=== PATIENT | female | born 1935 | race Caucasian/White ===

== ENCOUNTER 2020-07-03 13:49 | Inpatient (IN) | payer OTHER, SELFPAY ==
[~2020-07-03] VITALS: Ht 177.8 cm; Wt 50.8 kg
[~2020-07-03 13:49] MED LIST: ATENOLOL; BABY ASPIRIN; IRON
--- NOTE | 2020-07-03 14:02 | NUR ---
BIB EMT FROM HOME FOR WEAKNESS, CAREGIVER CALLED 911 TO REPORT HER CONDITION, UPON [facility] REQUIRED TRANSFER TO ER. PT HAS NO COMPLAINTS. RESP UNLABORED, SKIN DRY. POOR HYGIENE, UNABLE TO STATE LAST MEAL. UNKNOWN LAST BATH. SHE HAS MULTIPLE SCABS, BANDAIDS. SPINAL DEFORMITY TO UPPER SPINE, NECK CONTRACTURE
[2020-07-03 14:09] VITALS: BP_SYST 131
[2020-07-03] MEDS ORDERED: NS 250 ML IV ONE (14:15)
--- NOTE | 2020-07-03 14:15 | NUR ---
SPOKE WITH MEDICS REGARDING PTS LIVING CONDITIONS, MEDICS STATE THAT HOUSE IS UNINHABITABLE. HOUSE IS DIRTY. CALL PLACED TO KNITTING DEMONSTRATOR DIOMEDES TO INFORM HER OF POSSIBLE ADMISSION AND THAT KNITTING DEMONSTRATOR NEED TO GET INVOLVED.
[2020-07-03] MEDS ORDERED: DILTIAZEM HCL 25 MG/5 ML VIAL IVP ONE (15:00)
[2020-07-03 15:07] LABS: BASOPHILS % (AUTO) 0.2 % (0.0-2.0); HEMATOCRIT 46.8 % (36-48); HEMOGLOBIN 15.2 g/dL (12.0-16.0); LYMPHOCYTES # (AUTO) 0.6 K/uL (1.0-5.5); LYMPHOCYTES % (AUTO) 5.4 % (20.5-51.5); MEAN CORPUSCULAR HEMOGLOBIN 31 pg (27-31); MEAN CORPUSCULAR HGB CONC 33 % (32-36); MEAN CORPUSCULAR VOLUME 97 fL (79.0-98.0); MONOCYTES # (AUTO) 0.9 K/uL (0.0-1.0); MONOCYTES % (AUTO) 8.4 % (1.7-9.3); NEUTROPHILS # (AUTO) 9.5 K/uL (1.8-7.7); PLATELET COUNT (AUTO) 165 K/uL (130-430); RED BLOOD CELL COUNT(AUTO) 4.84 MIL/uL (4.2-6.2); RED CELL DISTRIBUTION WIDTH 14.9 % (9.0-15.0); WHITE BLOOD COUNT (AUTO) 11.1 K/uL (4.8-10.8)
[2020-07-03 15:26] LABS: ANION GAP 14 (5-15); CALCIUM 9.1 mg/dL (8.4-11.0); CHLORIDE 102 mmol/L (98-107); CREATININE 0.65 mg/dL (0.55-1.30); GLUCOSE 134 mg/dL (70-99); POTASSIUM 3.8 mmol/L (3.5-5.1); SODIUM SERUM 138 mmol/L (136-145); UREA NITROGEN, BLOOD 26 mg/dL (8-21)
[2020-07-03 15:32] LABS: ALANINE AMINOTRANSFERASE 34 U/L (12-78); ALBUMIN 3.8 g/dL (3.4-4.8); ASPARTATE AMINOTRANSFERASE 45 U/L (10-37); TOTAL BILIRUBIN 1.3 mg/dL (0.0-1.0)
--- NOTE | 2020-07-03 15:49 | NUR ---
BACK FROM CT. A-FIB ON MONITOR
[2020-07-03 15:50] LABS: INR 1.1 (0.8-1.2); PROTHROMBIN TIME 11.3 SECS (9.5-12.5)
--- NOTE | 2020-07-03 15:57 | NUR ---
SPOKE WITH CAREGIVER (NEIGHBOR) AVERY AND STATED THAT SHE ONLY TAKES HER TO THE [facility] STORE, PT DOES NOT ALLOW ANYONE IN HER HOME. TODAY CAREGIVER AVERY WENT INTO HOME AND STATES IT IS LIKE A HOARDERS HOME AND IS FILTHY.
--- NOTE | 2020-07-03 16:11 | NUR ---
STRAIGHT catheter with use of sterile technique. Immediate return of 325cc CLEAR urine noted. Urine sample collected and sent to lab. Pt tolerated procedure WELL Patient unable to toilet self.
[2020-07-03 16:43] LABS: CLARITY/URINE CLEAR (CLEAR); COLOR,URINE YELLOW (YELLOW); GLUCOSE,URINE NEGATIVE (NEGATIVE); KETONES,URINE NEGATIVE (NEGATIVE); PH,URINE 5.5 (5.0-8.0); PROTEIN URINE 2+ (NEGATIVE)
[2020-07-03 16:44] LABS: BILIRUBIN,URINE NEGATIVE (NEGATIVE); BLOOD, URINE 3+ (NEGATIVE); LEUKOCYTE ESTERASE ,URINE NEGATIVE (NEGATIVE); NITRITE, URINE NEGATIVE (NEGATIVE); UROBILINOGEN,URINE 0.2 (0.2-1.0)
[2020-07-03 16:47] LABS: BACTERIA,URINE MANY /HPF (None Seen); WBC,URINE 0-3 /HPF (0-3)
[2020-07-03 16:48] LABS: HYALINE CASTS, URINE 0-10 /LPF (None Seen); TRICHOMONAS,URINE None Seen /HPF (None Seen); YEAST,URINE None Seen /HPF (None Seen)
[2020-07-03 16:49] LABS: MUCUS,URINE 1+ /LPF (None Seen)
[2020-07-03] MEDS ORDERED: DILTIAZEM HCL 125 MG/25 ML VIAL IV ONE (17:37)
--- NOTE | 2020-07-03 17:54 | NUR ---
ADMIT ORDERS RECEIVED BY KATHY FOR TELE ADMIT UNDER MYNOR
[2020-07-03] MEDS ORDERED: cefTRIAXone 1 GM IVPB PREMIX 50 ML IV SCH (18:00)
[2020-07-03] MEDS ORDERED: cefTRIAXone 1 GM VIAL ONE (18:22)
--- NOTE | 2020-07-03 19:18 | NUR ---
CALM, ALERT, NO CHANGE IN MENTATION, UPDATE GIVEN TO CAREGIVER
--- NOTE | 2020-07-03 20:10 | NUR ---
ALERT, CALM, RESP UNLABORDED
[2020-07-03 21:45] VITALS: BP_SYST 105
--- NOTE | 2020-07-03 21:45 | NUR ---
pt.received via the er-dept.pt.received with cardizem-drip infusing.pt.presents poor hygiene.pt.presents loc;confuses;subject matter incoherent.pt.presents wounds,scabs.pt. incontinent.o2 therapy applied;o2 administered@the rate2l/min via nasal cannulae.pt.cleaned/repositioned.call light/telephone placed w/in reach of the pt.
--- NOTE | 2020-07-03 22:05 | NUR ---
TRANSPORTED TO FLOOR W/O INCIDENT. NO CHANGE IN MENTATION.
--- NOTE | 2020-07-03 22:22 | NUR ---
LATE ENTRY FOR 2137: ADMISSION: The patient, EDIE RAE, 85 y/o, F admitted by ORTIZ LOWE MD,with the diagnosis of A FIB , to room 103 B . Primary RN Poncho recived report from ER nurse . NOTICED THAT PT IS ON CARDIZEM DRIP AT 10 ML/HR . C.N NOTIFIED
[2020-07-03 22:27] VITALS: BP_SYST 105
[2020-07-03] MEDS: ENOXAPARIN SODIUM 60 MG/0.6 ML SYRINGE SUBCUT SCH (22:47)
[2020-07-03] MEDS ORDERED: NACL 0.9% 1,000 ML IV ONE (23:30)
[2020-07-03] MEDS ORDERED: cefTRIAXone 1 GM IVPB PREMIX 50 ML IV ONE (23:30)
[2020-07-03] MEDS ORDERED: NACL 0.9% 500 ML IV ONE (23:30)
[2020-07-04] MEDS ORDERED: cefTRIAXone 1 GM VIAL ONE (00:04)
--- NOTE | 2020-07-04 02:28 | NUR ---
Consultation Paged Reason for Consultation: Afib with RVR Was consult called: Y Person who was notified: Wood Heel Cementer 22 Consulting Physician: Dr. Cuadra (Dr. Jaramillo is stationary engineer refrigeration) Ordering Physician: Dr. Dodd
--- NOTE | 2020-07-04 06:30 | NUR ---
had been paged.i apprised that the pt.had been received w cardizem-drip infusing. ordered:do not titrate the cardizem-drip.i apprised that the lactic acids levels were elevated otdered sepsis protocol.b/b/cx had been attended to in the er-dept.rocephine 1gm initial dose ordered.i administered ns bolus x1.5litres,rocephin abx ivpb initial dose.pt.had received the administration;ns;250ml x1 in th er-dept.pt.presented wounds;scabs.i have photographed the wounds;sacbs.orders placed for the wcn to fu.pt.repositioned q-2hrs.snacks/beverages provided.pt.cleaned.;cardio consult for the am;07/04/20;re;a-fib status.cardio monitor in place. call light/telephone placed w/in access of the pt.
[2020-07-04 06:46] LABS: BASOPHILS % (AUTO) 0.2 % (0.0-2.0); HEMATOCRIT 37.2 % (36-48); HEMOGLOBIN 12.3 g/dL (12.0-16.0); LYMPHOCYTES # (AUTO) 0.7 K/uL (1.0-5.5); LYMPHOCYTES % (AUTO) 7.6 % (20.5-51.5); MEAN CORPUSCULAR HEMOGLOBIN 32 pg (27-31); MEAN CORPUSCULAR HGB CONC 33 % (32-36); MEAN CORPUSCULAR VOLUME 96 fL (79.0-98.0); MONOCYTES % (AUTO) 10.7 % (1.7-9.3); NEUTROPHILS # (AUTO) 7.4 K/uL (1.8-7.7); NEUTROPHILS % (AUTO) 81.5 % (40.0-70.0); PLATELET COUNT (AUTO) 140 K/uL (130-430); RED BLOOD CELL COUNT(AUTO) 3.88 MIL/uL (4.2-6.2); RED CELL DISTRIBUTION WIDTH 14.7 % (9.0-15.0); WHITE BLOOD COUNT (AUTO) 9.1 K/uL (4.8-10.8)
[2020-07-04 07:07] LABS: ANION GAP 9 (5-15); CALCIUM 8.1 mg/dL (8.4-11.0); CHLORIDE 106 mmol/L (98-107); CREATININE 0.46 mg/dL (0.55-1.30); GLUCOSE 98 mg/dL (70-99); POTASSIUM 3.3 mmol/L (3.5-5.1); SODIUM SERUM 141 mmol/L (136-145); UREA NITROGEN, BLOOD 27 mg/dL (8-21)
[2020-07-04 07:20] LABS: ALANINE AMINOTRANSFERASE 28 U/L (12-78); ALBUMIN 3.1 g/dL (3.4-4.8); ASPARTATE AMINOTRANSFERASE 41 U/L (10-37); TOTAL BILIRUBIN 0.7 mg/dL (0.0-1.0)
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
[2020-07-04 08:21] VITALS: BP_SYST 123
--- NOTE | 2020-07-04 09:50 | NUR ---
ROCK MASON: MORNING MEDS GIVEN, PER ORDERED BY Dasia, TOLERATED WELL, WILL CONT' TO MONITOR AND ASSESS.
[2020-07-04] MEDS: METOPROLOL SUCCINATE 25 MG TAB.SR.24H (TOPROL XL) PO SCH (09:57)
[2020-07-04] MEDS: ASPIRIN 81 MG TABLET(ECOTRIN) PO SCH (09:57)
[2020-07-04] MEDS: ENOXAPARIN SODIUM 60 MG/0.6 ML SYRINGE SUBCUT SCH ×2 (09:58→20:39)
--- NOTE | 2020-07-04 10:03 | NUR ---
Nutrition Update Liban Scale 12 noted. Pt admitted for atr fibr. Diet: cardiac BMI: 18.7 kg/m2 RD to follow per nutrition care standards.
--- NOTE | 2020-07-04 10:07 | NUR ---
Molding Press Operator Note Patient referred by Pema in ED 07/03/20. Patient arrived disheveled and her mobile home was reportedly inhabitable due to hoarding and lack of cleaning. Phoned patient's nurse, Mari ROTH. Patient is only oriented x 1 or 2. Phoned the neighbor listed on the face sheet, Bere Reese [phone]. She stated she has known patient for 16 years. Patient has never mentioned any family but has stated she received a birthday card in the past from someone in [place]. She provided the phone number of mobile home energy auditor, Pema Blue. Phoned Pema Blue, . She has been managing the mobile home park for four years. She is unsure about patient's finances, but patient always pays her rent on time. Patient rarely attends group functions and not at all in the last year. Pema last saw patient outside on 06/28/20 and the director systems saw her on 07/01/20 outside watering her plants. She had never been inside patient's home. Pema entered patient's mobile home on 07/03/20 because a neighbor reported that patient's lights were on all night and the AC was running, which was unusual. The patient did not answer the knock. Patient was found immobile on the couch and unable to sit up. The mobile home was filthy and full of unneeded items. Pema called patient's helper, Gertrude Lepe, to convince patient to go to seek medical help. Phoned Gertrude Lepe, cell [phone] h [phone]. She has been bringing patient groceries and transporting her to her doctor visits (PCP Dr Ordoñez). The last PCP appointment was possibly 4 to 6 months ago. Patient used to go to the grocery store, but is less ambulatory and did not want a wheelchair. Gertrude has been bringing the groceries to the door the last several months. Patient may have Meals on Wheels. Patient never let Gertrude in the door of her home. Yesterday was the first time Gertrude has been inside. She stated that it would be unsafe for patient to return home with the place in that condition. Patient once lived in [place]. Patient has stated she has no family. Gertrude has offered to be patient's DPOA in the past, but nothing was ever followed up. Patient stated her [employer] was cancelled a few moths ago because she had too much money in the bank. Gertrude has brought patient to the bank in the past. She is unsure of patient's income source, but believes it is only Social Security. Phoned Laureen HERMAN with HCP and notified her of above and that patient cannot return home safely at this time. Phoned [facility] and made a report. Toñito #[id number]. Someone will follow up in 1 to 10 days. Will submit written report later today. Notified Yeinfer in Admitting to update face sheet with Pema and Gertrude's contact information.
--- NOTE | 2020-07-04 12:00 | NUR ---
NURSES NOTES: PT REMAINS A/A/OX2, UNABLE TO SIGN CONSENT FOR MRI X-RAY, MCarmenDCarmen, NOTIFIED, NO NEW ORDERS GIVEN AT THIS TIME, WILL CONT' TO MONITOR AND ASSESS.
--- NOTE | 2020-07-04 12:11 | NUR ---
CONSULTATION PAGED REASON FOR CONSULTATION:CONFUSION WAS CONSULT CALLED?Y PERSON WHO WAS NOTIFIED:JAZMINE ALFARO PAGER PAGED CONSULTING PHYSICIAN:DONNIE ALFARO PRESS OPERATOR AUTOMATIC SPECIALTY:NEURO PRESS OPERATOR AUTOMATIC PHONE NUMBER:[phone] REQUESTING PHYSICIAN:ORTIZ OLSEN
[2020-07-04 12:40] VITALS: BP_SYST 120
--- NOTE | 2020-07-04 14:00 | NUR ---
NURSES NOTES: PT ASLEEP, WITH NO CHANGES NOTED AT THIS TIME, POSITIONED FOR COMFORT, NO INDICATION OF PAIN, CALL LIGHT WITHIN REACH, WILL CONT' TO MONITOR AND ASSESS.
--- NOTE | 2020-07-04 14:55 | NUR ---
WOUND EVALUATION: Wound Consult received from Dr. Alcala. Thank you, Dr. Alcala, for the consult. Patient received in a Toledo Bed with an Isoflex ALCON mattress, low air loss therapy was initiated, asleep, very difficult to arouse. Patient is unable to turn in bed independently. Liban Score is a 10. Past Medical History: Hypertension, Anemia. Recent labs: WBC 9.1, RBC 3.88, hemoglobin 12.3, hematocrit 37.2, potassium 3.1, BUN 27, creatinine 0.46, calcium 8.1, serum total protein 6.2, albumin 3.1, PTT 21.2, troponin 0 0.106/0 0.118/0.082. Microbiology: Blood culture results x2 in progress. MRSA screen results in progress. Urine culture results negative. Intrinsic factors that delay wound healing: Anemia, Hypoalbuminemia. Extrinsic factors that delay wound healing: Immobility. Wound Assessment: 1. Left Distal Leonard: Cellulitis, present on admission. Site has a small wound with 100% brown scab. No odor, scant serous drainage. Periwound intact. Surrounding tissue erythema. Wound measures 0.8 cm x 1.1 cm. Recommend: Cleanse wound with normal saline. Apply SurePrep to erika-wound. Apply hydrogel to wound bed. Cover with foam dressing. Perform wound care daily, and as needed for dressing soiling or dislodgement. 2. Left Lateral Hip: Abrasion, present on admission. Site has 100% red tissue. No odor, no drainage. Periwound intact. Site measures 1.3 cm x 0.3 cm. 3. Left Lateral Hip, posterior to site 2: Abrasion, present on admission. Site has 100% red tissue. No odor, no drainage. Periwound intact. Site measures 0.4 cm x 0.4 cm. Recommend: Cleanse wounds with normal saline. Apply moisture barrier cream to wounds and erika-wounds. Apply hydrogel to any portion of wound not covered by moisture barrier cream. Cover with 4x4 foam dressing. Perform wound care daily, and as needed for dressing soiling or dislodgement. 4. Left Lower Extremity: Multiple, multiple scabs with dry, scaly skin, present on admission. 5. Right Lower Extremity: Multiple, multiple scabs with dry, scaly skin, present on admission. 6. Left Plantar Foot: Dry, greenish-black scaly skin, present on admission. 7. Right Plantar Foot: Dry flaky skin, present on admission. Recommend: Cleanse extremities with mild soap and water. Pat dry. Apply Eucerin cream to bilateral lower extremity dry scaly skin areas. Perform site care twice daily. 8. Right Lateral Cheek near Zygomatic Bone: Dry abrasion, present on admission. Site has 100% red tissue. No odor, no drainage. Periwound intact. Dry, stable. Recommend: Cleanse wound with normal saline. Apply SurePrep to erika-wound. Cover with foam dressing. Perform wound care daily, and as needed for dressing soiling or dislodgement. 9. Upper back: Chronic wound, present on admission. Wound has 90% brown scab with 10% red discoloration. No odor, no drainage. Periwound intact. Wound measures 4.1 cm x 3.0 cm. Recommend: Cover site with foam dressing for protection. Do not place patient flat on her back at any time. 10. Left Dorsal Hand: Ecchymosis. No odor, no drainage. Recommend: No dressing needed. Continue to monitor site every shift. Also recommend: Reposition patient hawo-iv-feci only every 2 hours with pillow support and off-load pressure areas with pillows for pressure re-distribution. Offload, elevate and float bilateral heels with one pillow lengthwise under each extremity at all times. Perform skin care and monitor skin integrity Q shift. Use Hydraguard barrier cream on buttocks and other moisture susceptible areas QID and as needed for soiling. Maintain patient on a low air-loss mattress.
[2020-07-04 16:14] VITALS: BP_SYST 144
[2020-07-04] MEDS: cefTRIAXone 1 GM IVPB PREMIX 50 ML IV SCH (19:04)
--- NOTE | 2020-07-04 19:53 | NUR ---
Initial note: Received report from dayshift RN. Patient is awake in bed watching TV, alert and oriented x2, appears disheveled, no acute distress. Even, unlabored breathing on room air. IV site to right AC patent and intact, saline locked. Call light is with patient. Safety, fall precautions in place. Will continue with plan of care.
[2020-07-04 20:00] VITALS: BP_SYST 147
[2020-07-04] MEDS: EMOLLIENT COMBINATION NO.73 78 GM CREAM..G. TP SCH (20:40)
--- NOTE | 2020-07-04 22:20 | NUR ---
Rounds: Patient is resting comfortably in bed. No acute distress. Even,unlabored breathing. IV site patent and intact. Call light with patient. Will continue monitoring.
--- NOTE | 2020-07-04 22:40 | NUR ---
Dr. Kovacs: called back at this time, was made aware that patient's heart rate sustaining 120's to 140's. New orders received, verified by read-back, RN to input.
[2020-07-04] MEDS ORDERED: METOPROLOL TARTRATE 5 MG/5 ML VIAL IVP ONE (22:45)
[2020-07-05] VITALS: BP_SYST 124
--- NOTE | 2020-07-05 01:00 | NUR ---
ASSUMPTION OF CARE RECEIVED PATIENT IN BED SLEEPING WITH NO SIGNS OF DISTRESS NOTED, RESPIRATIONS EVEN AND UNLABORED ON ROOM AIR. SAFETY AND FALL PRECAUTIONS IN PLACE. BED LOCKED IN LOW POSITION WITH CALL LIGHT IN REACH. WILL CONTINUE TO MONITOR.
--- NOTE | 2020-07-05 01:00 | NUR ---
Endorsement of care: Report given to GONZALEZ Rivera for continuation of care.
--- NOTE | 2020-07-05 06:30 | NUR ---
CLOSING NOTE PATIENT IN BED CONTINUES SLEEPING WITH NO SIGNS OF DISTRESS NOTED. IV REMAINS PATENT AND INTACT FLUSHING WELL. PATIENT STABLE. SAFETY MEASURES IN PLACE. BED LOCKED IN LOW POSITION, CALL LIGHT IN REACH, BED ALARM ON.WILL CONTINUE TO MONITOR UNTIL ENDORSED TO AM NURSE.
--- NOTE | 2020-07-05 08:00 | NUR ---
ASSUMPTION OF CARE: RECEIVED PT AWAKE, ALERT, ORIENTED X4, DX:INADEQUATE PERFUSION, R/T A-FIB, VSS, AFEBRILE, NO C/O PAIN OR DISCOMFORT, BREATH SOUNDS ARE CLEAR, BREATHING UNLABORED, SATURATING 98% ORA, IV SITE INTACT, PATENT, NO REDNESS OR SWELLING, REORIENTED TO CALL LIGHT, PLACED WITHIN REACH, WILL CONT' TO MONITOR AND ASSESS.
[2020-07-05 08:10] VITALS: BP_SYST 151
[2020-07-05] MEDS: ASPIRIN 81 MG TABLET(ECOTRIN) PO SCH (08:45)
[2020-07-05] MEDS: METOPROLOL SUCCINATE 25 MG TAB.SR.24H (TOPROL XL) PO SCH (08:45)
[2020-07-05] MEDS: ENOXAPARIN SODIUM 60 MG/0.6 ML SYRINGE SUBCUT SCH ×2 (08:46→22:29)
--- NOTE | 2020-07-05 09:00 | NUR ---
VISIT: AT BEDSIDE FOR ASSESSMENT OF PT, NEW ORDERS GIVEN, WILL CONT' WITH POC.
--- NOTE | 2020-07-05 09:15 | NUR ---
INTEGRATION ARCHITECT: MORNING MEDS GIVEN, PER ORDERED BY Dasia, TOLERATED WELL, WILL CONT' TO MONITOR AND ASSESS.
--- NOTE | 2020-07-05 09:44 | NUR ---
PAGED PAGED ,FAHED AT [phone] SPOKE WITH IVAN.
[2020-07-05] MEDS: METOPROLOL TARTRATE 5 MG/5 ML VIAL IVP PRN ×3 (09:59→19:15)
[2020-07-05] MEDS ORDERED: GADOBENATE DIMEGLUMINE 529 MG/ML, 15 ML VIAL IV ONE (11:44)
[2020-07-05 12:45] VITALS: BP_SYST 142
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
--- NOTE | 2020-07-05 15:32 | NUR ---
Maintenance Repairman: received call from pts. "Caregiver" Jerel Lepe Caregiver wanted a medical update re. pt. PAD MACHINE OFFBEARER told her she would have to get back to her. PAD MACHINE OFFBEARER needs to verify info. Caregiver called PAD MACHINE OFFBEARER again. PAD MACHINE OFFBEARER stated she needed more time. PAD MACHINE OFFBEARER called [facility] and shared the info and phone for Mrs. Lepe. Laureen stated she would give her a call.
--- NOTE | 2020-07-05 15:37 | NUR ---
Dietitian Recommendations * Recommend cardiac, chopped diet w/ Ensure Enlive TID, Ravindra BID, Prosource BID (supplements provide an additional 1350 kcal/day and 95 gm protein/day) JACE MARQUES Please refer to Nutrition Assessment for details. Addendum: 07/05/20 at [address] Amended: Links added.
[2020-07-05 16:16] VITALS: BP_SYST 149
--- NOTE | 2020-07-05 17:00 | NUR ---
NURSES NOTES: PT ASLEEP, NO S/S OF DISTRESS, NO INDICATION OF PAIN OR DISCOMFORT, CALL LIGHT PLACED WITHIN REACH, WILL CONT' TO MONITOR AND ASSESS.
[2020-07-05] MEDS: cefTRIAXone 1 GM IVPB PREMIX 50 ML IV SCH (19:14)
--- NOTE | 2020-07-05 19:30 | NUR ---
OPENING NOTE RECEIVED PATIENT ASLEEP IN BED NO SIGNS OF DISTRESS NOTED. DISHEVELED APPEARANCE. AROUSABLE TO AUDITORY STIMULI. IV PATENT AND INTACT, FLUSHING WELL. RESPIRATIONS EVEN AND UNLABORED ON ROOM AIR. SAFETY MEASURES IN PLACE. BED LOCKED IN LOW POSITION, CALL LIGHT IN REACH, BED ALARM ON . WILL CONTINUE TO MONITOR.
[2020-07-05 20:00] VITALS: BP_SYST 140
[2020-07-05] MEDS: EMOLLIENT COMBINATION NO.73 78 GM CREAM..G. TP SCH (22:29)
--- NOTE | 2020-07-05 23:00 | NUR ---
RN ROUNDS PATIENT IN BED AWAKE, CONFUSED. REORIENTED PATIENT HOWEVER PATIENT REMAINS CONFUSED ASKING FOR A FLASHLIGHT SHE THINKS SHE IS AT HOME ON THE COUCH. HEART RATE 99, NO SIGNS OF DISTRESS NOTED WILL CONTINUE TO MONITOR.
[2020-07-06] VITALS: BP_SYST 128
--- NOTE | 2020-07-06 02:00 | NUR ---
RN ROUNDS REPOSITIONED PATIENT. PROVIDED INCONTINENCE CARE. PATIENT TOLERATED. NO COMPLAINTS AT THIS TIME. PATIENT WATCHING TV.
[2020-07-06] MEDS: DILTIAZEM HCL 25 MG/5 ML VIAL IVP PRN ×2 (06:29→08:51)
--- NOTE | 2020-07-06 06:30 | NUR ---
CLOSING NOTE HEART RATE SUSTAINING AT 128, ADMINISTERED CARDIZEM ORDERED. PATIENT TOLERATED. RESPIRATIONS REMAIN EVEN AND UNLABORED ON ROOM AIR. PATIENT RESTING WITH NO DISTRESS NOTED. SAFETY PRECAUTIONS IN PLACE. BED LOCKED IN LOW POSITION, CALL LIGHT IN REACH. WILL CONTINUE TO MONITOR UNTIL ENDORSED TO AM NURSE.
--- NOTE | 2020-07-06 07:15 | NUR ---
ENDORSED CARE TO AM NURSE MAJANO. PATIENT STABLE AT THIS TIME.
[2020-07-06 08:00] VITALS: BP_SYST 114
--- NOTE | 2020-07-06 08:10 | NUR ---
Patient is awake, alert and semi-oriented. She is aware of place but talks non-sense at times. Patient continues to have weakness, non ambulatory. Her RAC #22 is patent and infusing IV fluids. Patient denies pain at this time. She has some tachycardia, she will be given prn IV cardizem for elevated HR. Patient will be continuously monitor for status. Explained that we were not able to complete MRI due to multiple hair pins embedded in her severely matted hair, asked if i can get her permission to clip some of her hair to extract pins, patient refused. I got a full report from the electrical inspector nurse. Bed is low, locked, 2 side rails are up and call light is within reach.
[2020-07-06] MEDS: ASPIRIN 81 MG TABLET(ECOTRIN) PO SCH (08:50)
[2020-07-06] MEDS: EMOLLIENT COMBINATION NO.73 78 GM CREAM..G. TP SCH ×2 (08:50→21:41)
[2020-07-06] MEDS: METOPROLOL SUCCINATE 25 MG TAB.SR.24H (TOPROL XL) PO SCH (08:50)
[2020-07-06] MEDS: ENOXAPARIN SODIUM 60 MG/0.6 ML SYRINGE SUBCUT SCH ×2 (08:57→21:40)
--- NOTE | 2020-07-06 10:02 | NUR ---
Patient is sleeping, not showing any signs of distress, HR is more controlled with Cardizem. Will continue to monitor patient. Bed is low, locked, 2 side rails are up and call light is within reach.
[2020-07-06] MEDS ORDERED: DILTIAZEM HCL 30 MG TABLET PO ONE (11:45)
[2020-07-06 12:00] VITALS: BP_SYST 119
--- NOTE | 2020-07-06 12:05 | NUR ---
Patient is awake and alert, denies pain at this time, not showing any signs of distress at this time. Bed is low, locked, 2 side rails are up and call light is within reach.
--- NOTE | 2020-07-06 13:56 | NUR ---
Nutrition Note RD spoke w/ pt's primary RN at the nursing station this afternoon. RN stated that pt seems to pocket foods w/ previously ordered diet: cardiac, chopped diet -- pt may benefit from mechanical soft, finely chopped diet w/ extra sauces/gravies for improved food mastication. RN also reported that pt has been taking in supplements. Recommend downgrade to cardiac, mechanical soft, finely chopped diet w/ Ensure Enlive TID, Ravindra BID, Prosource BID.
[2020-07-06 16:15] VITALS: BP_SYST 120
[2020-07-06] MEDS: cefTRIAXone 1 GM IVPB PREMIX 50 ML IV SCH (18:40)
--- NOTE | 2020-07-06 18:53 | NUR ---
Closing notes: Patient is awake, alert and semi-oriented. non ambulatory. Patient continues to have weakness, non ambulatory. Her RAC #22 is patent and infusing IV fluids. Patient denies pain at this time. She has some tachycardia, she will be given prn IV cardizem for elevated HR. All needs were met throughput shift. Explained that we were not able to complete MRI due to multiple hair pins embedded in her severely matted hair, asked if i can get her permission to clip some of her hair to extract pins, patient refused. Patient denies pain at this time, not eating much. I will give report to the job analyst nurse. Bed is low, locked, 2 side rails are up and call light is within reach.
[2020-07-06 20:00] VITALS: BP_SYST 111
--- NOTE | 2020-07-06 21:00 | NUR ---
MEDICATION PASS CRUSHED MEDICATIONS AND SERVED WITH APPLESAUCE, PATIENT STATES ITS HARD TO SWALLOW AND IT FEELS LIKE SHE CAN'T BREATHE WHEN SHE HAS TO SWALLOW FOOD/MEDICATION. HOWEVER SHE DID SWALLOW ORAL MEDICATION AT THIS TIME. HOB ELEVATED. WILL CONTINUE TO MONITOR.
[2020-07-06] MEDS: DILTIAZEM HCL 30 MG TABLET PO SCH (21:59)
--- NOTE | 2020-07-07 | NUR ---
RN ROUNDS PATIENT REPOSITIONED, RESTING WITH NO COMPLAINTS OR SIGNS OF DISTRESS AT THIS TIME. CALL LIGHT REMAINS IN REACH, SAFETY AND ASPIRATION PRECAUTIONS MAINTAINED.
[2020-07-07 00:24] VITALS: BP_SYST 93
[2020-07-07] MEDS: DILTIAZEM HCL 30 MG TABLET PO SCH ×2 (04:00→17:17)
--- NOTE | 2020-07-07 04:00 | NUR ---
MEDICATION PASS CRUSHED PO MEDICATIONS AND MIXED WITH APPLESAUCE, PATIENT REFUSED TO TAKE MEDICATION. SHE STATES IT'S TOO HARD TO SWALLOW. WILL CONTINUE TO MONITOR.
--- NOTE | 2020-07-07 06:15 | NUR ---
CLOSING NOTES PATIENT IN BED AWAKE ALERT, NO SIGNS OF DISTRESS NOTED. IV SITE PATENT AND INTACT, FLUSHING WELL. RESPIRATIONS EVEN AND UNLABORED ON ROOM AIR. HEART RATE MAINTAINED AT LOW 100S THROUGHOUT SHIFT. NO PRN MEDICATIONS NEEDED. SAFETY MEASURES IN PLACE. BED LOCKED IN LOW POSITION, CALL LIGHT IN REACH, BED ALARM ON . WILL CONTINUE TO MONITOR.
--- NOTE | 2020-07-07 07:30 | NUR ---
OPENING NOTES: RECEIVED PATIENT FROM FHA UNDERWRITER NURSE. PATIENT IS AWAKE AND ALERT x2 LAYING DOWN IN BED. PATIENT DENIES ANY PAIN AT THE MOMENT. PATIENT IS TOLERATING OXYGEN ON ROOM AIR WITH NO SIGNS OF DISTRESS OR SHORTNESS OF BREATH NOTED. IV SITE IS PATENT WITH NO SIGNS OF INFILTRATION NOTED. PATIENT IN STABLE CONDITION. SAFETY, FALL, AND ASPIRATION PRECAUTIONS ARE IN PLACE. BED LOCKED IN LOWEST POSITION WITH CALL LIGHT IN REACH. WILL CONTINUE TO MONITOR PATIENT FOR ANY CHANGES.
[2020-07-07 08:28] VITALS: BP_SYST 137
[2020-07-07] MEDS: ASPIRIN 81 MG TABLET(ECOTRIN) PO SCH (08:39)
[2020-07-07] MEDS: EMOLLIENT COMBINATION NO.73 78 GM CREAM..G. TP SCH ×2 (08:40→22:03)
[2020-07-07] MEDS: METOPROLOL SUCCINATE 25 MG TAB.SR.24H (TOPROL XL) PO SCH (08:40)
[2020-07-07] MEDS: ENOXAPARIN SODIUM 60 MG/0.6 ML SYRINGE SUBCUT SCH ×2 (08:45→22:00)
--- NOTE | 2020-07-07 10:19 | NUR ---
RN ROUNDS: PATIENT IS AWAKE AND ALERT x2 LAYING DOWN IN BED. ASSISTED PATIENT IN TURNING ON THE TV. PATIENT IS TOLERATING OXYGEN ON ROOM AIR WITH NO SIGNS OF DISTRESS OR SHORTNESS OF BREATH NOTED. IV SITE IS PATENT WITH NO SIGNS OF INFILTRATION NOTED. PATIENT IN STABLE CONDITION. WILL CONTINUE TO MONITOR PATIENT FOR ANY CHANGES.
--- NOTE | 2020-07-07 11:00 | NUR ---
MD ROUNDS: DR. LOWE MAKING HIS ROUNDS. INFORMED HIM OF PATIENT HAVING DIFFICULTY SWALLOWING. MD ORDERED FOR A SWALLOW EVALUATION. PATIENT WILL BE NPO EXCEPT MEDS TILL SWALLOW EVALUATION IS DONE PER DR. LOWE.
[2020-07-07] MEDS ORDERED: DILTIAZEM HCL 30 MG TABLET PO ONE (11:15)
[2020-07-07 11:54] VITALS: BP_SYST 108
--- NOTE | 2020-07-07 12:20 | NUR ---
RN ROUNDS: PATIENT IS AWAKE AND ALERT x1 LAYING DOWN IN BED. PATIENT WAS ASSISTED UP IN BED. PATIENT IS TOLERATING OXYGEN ON ROOM AIR WITH NO SIGNS OF DISTRESS OR SHORTNESS OF BREATH NOTED. IV SITE IS PATENT WITH NO SIGNS OF INFILTRATION NOTED. PATIENT IN STABLE CONDITION. WILL CONTINUE TO MONITOR PATIENT FOR ANY CHANGES.
--- NOTE | 2020-07-07 12:28 | NUR ---
SWALLOW EVALUATION LEFT MESSAGE TO SPEECH THERAPIST RE SWALLOW EVAL FOR PATIENT (TEL#[phone])
--- NOTE | 2020-07-07 14:25 | NUR ---
RN ROUNDS: PATIENT IS AWAKE AND ALERT x2 LAYING DOWN IN BED. PATIENT DENIES ANY PAIN AT THE MOMENT. IV SITE IS PATENT WITH NO SIGNS OF INFILTRATION NOTED. PATIENT IN STABLE CONDITION. WILL CONTINUE TO MONITOR PATIENT FOR ANY CHANGES.
[2020-07-07 16:00] VITALS: BP_SYST 104
--- NOTE | 2020-07-07 16:14 | NUR ---
RN ROUNDS: PATIENT IS AWAKE AND ALERT x2 LAYING DOWN IN BED. PATIENT DENIES ANY PAIN AT THE MOMENT. PATIENT IS TOLERATING OXYGEN ON ROOM AIR WITH NO SIGNS OF DISTRESS OR SHORTNESS OF BREATH NOTED. PATIENT WAS CHANGED, CLEANED AND REPOSITIONED. PATIENT TOLERATED IT WELL. IV SITE IS PATENT WITH NO SIGNS OF INFILTRATION NOTED. PATIENT IN STABLE CONDITION. WILL CONTINUE TO MONITOR PATIENT FOR ANY CHANGES.
[2020-07-07] MEDS: cefTRIAXone 1 GM IVPB PREMIX 50 ML IV SCH (17:16)
--- NOTE | 2020-07-07 17:45 | NUR ---
IV REINSERTION: IV CATHETER BECAME DISLODGED. IV CATHETER REMOVED AND INTACT. NO ACTIVE BLEEDING NOTED. NEW IV SITE INSERTED INTO RIGHT FOREARM. ASEPTIC TECHNIQUE USED. SUCCESSFUL AFTER ONE ATTEMPT. IV SITE PATENT AND FLUSHES WELL. IV ANTIBIOTICS CONNECTED AT THIS TIME. WILL CONTINUE TO MONITOR PATIENT.
--- NOTE | 2020-07-07 18:39 | NUR ---
CLOSING NOTES: PATIENT IS AWAKE AND ALERT x2 LAYING DOWN IN BED. PATIENT DENIES ANY PAIN AT THE MOMENT. PATIENT IS TOLERATING OXYGEN ON ROOM AIR WITH NO SIGNS OF DISTRESS OR SHORTNESS OF BREATH NOTED. PATIENT REPOSITIONED AND TOLERATED IT WELL. IV SITE IS PATENT WITH NO SIGNS OF INFILTRATION NOTED. PATIENT IN STABLE CONDITION. SAFETY, FALL, AND ASPIRATION PRECAUTIONS REMAINED IN PLACE THROUGHOUT THE SHIFT. BED LOCKED IN LOWEST POSITION WITH CALL LIGHT IN REACH. WILL ENDORSE PATIENT CARE TO ONCOMING DIESEL ENGINE TESTER NURSE.
--- NOTE | 2020-07-07 20:20 | NUR ---
Pt A/O x3 to person, place and time, but forgetful. Pt slow to answer questions, but able to make needs known. Reoriented pt to reason for hospitalization. Pt noted to have disheveled appearance, with large ball of matted hair with metal hairpins stuck. PIV intact and patent, without signs of infiltration. No distress noted or reported. Pt denied any pain at this time. Pt turned and repositioned. Noted A-fib on the fig bar machine operator. AR=326. Pt on metoprolol daily; on cardizem 60 mg every 6 hours. VS stable. Pt unable to walk at this time. Aspiration precautions in place. HOB up > 30 degrees. Pt takes meds crushed with a bite of apple sauce. Pt slow with swallowing. All safety precautions in place. Monitoring continued.
[2020-07-07] MEDS ORDERED: METOPROLOL TARTRATE 50 MG TABLET PO ONE (20:30)
--- NOTE | 2020-07-07 22:20 | NUR ---
Pt awake. No distress noted or reported. Noted urinary incontinence. Pt cleaned, partial linen change. Pt turned and repositioned. Monitoring continued.
[2020-07-07 22:30] VITALS: BP_SYST 116
--- NOTE | 2020-07-08 00:20 | NUR ---
Pt turned and repositioned. No distress noted or reported. VS stable. Safety precautions continued.
[2020-07-08] MEDS: DILTIAZEM HCL 30 MG TABLET PO SCH ×4 (01:31→17:33)
[2020-07-08 01:53] VITALS: BP_SYST 108
--- NOTE | 2020-07-08 02:20 | NUR ---
Pt asleep, but helped turn and reposition. No distress noted or reported. Safety precautions continued.
[2020-07-08 04:00] VITALS: BP_SYST 125
--- NOTE | 2020-07-08 04:20 | NUR ---
Pt asleep, but helped turn and reposition. No distress noted or reported. Safety precautions continued.
--- NOTE | 2020-07-08 06:20 | NUR ---
Pt turned and repositioned. No distress noted or reported. O2 Sat noted to drop to 89% on RA. Encouraged pt to do deep breathing exercises. O2 sat increased to 93%. Pt safety maintained during shift. Safety precautions continued.
--- NOTE | 2020-07-08 07:30 | NUR ---
OPENING NOTES: RECEIVED PATIENT FROM SHALE MINER NURSE. PATIENT IS AWAKE AND ALERT x2 LAYING DOWN IN BED. PATIENT DENIES ANY PAIN AT THE MOMENT. PATIENT IS TOLERATING OXYGEN ON ROOM AIR WITH NO SIGNS OF DISTRESS OR SHORTNESS OF BREATH NOTED. IV SITE IS PATENT WITH NO SIGNS OF INFILTRATION NOTED. PATIENT IN STABLE CONDITION. SAFETY, FALL, AND ASPIRATION PRECAUTIONS ARE IN PLACE. BED LOCKED IN LOWEST POSITION WITH CALL LIGHT IN REACH. WILL CONTINUE TO MONITOR PATIENT FOR ANY CHANGES.
[2020-07-08 08:23] VITALS: BP_SYST 120
[2020-07-08] MEDS: ASPIRIN 81 MG TABLET(ECOTRIN) PO SCH (08:26)
[2020-07-08] MEDS: METOPROLOL SUCCINATE 25 MG TAB.SR.24H (TOPROL XL) PO SCH (08:27)
[2020-07-08] MEDS: ENOXAPARIN SODIUM 60 MG/0.6 ML SYRINGE SUBCUT SCH ×2 (08:28→20:43)
[2020-07-08] MEDS: EMOLLIENT COMBINATION NO.73 78 GM CREAM..G. TP SCH ×2 (08:30→20:42)
--- NOTE | 2020-07-08 10:05 | NUR ---
RN ROUNDS: PATIENT IS AWAKE AND ALERT x2 LAYING DOWN IN BED. PATIENT DENIES ANY PAIN AT THE MOMENT. PATIENT IS TOLERATING OXYGEN ON ROOM AIR WITH NO SIGNS OF DISTRESS OR SHORTNESS OF BREATH NOTED. PATIENT IN STABLE CONDITION. WILL CONTINUE TO MONITOR PATIENT FOR ANY CHANGES.
--- NOTE | 2020-07-08 10:24 | NUR ---
MD ROUNDS: DR. LOWE MAKING HIS ROUNDS. AWARE OF PATIENT'S CONDITION. NO NEW ORDERS GIVEN.
[2020-07-08 12:04] VITALS: BP_SYST 122
--- NOTE | 2020-07-08 12:27 | NUR ---
RN ROUNDS: PATIENT IS AWAKE AND ALERT x2 LAYING DOWN IN BED. PATIENT WAS REORIENTED TO PLACE. PATIENT DENIES ANY PAIN AT THE MOMENT. IV SITE IS PATENT WITH NO SIGNS OF INFILTRATION NOTED. PATIENT WAS REPOSITIONED AND OFFERED SOCKS FOR HER FEET. PATIENT TOLERATED IT WELL. PATIENT IS STILL AWAITING SWALLOW EVALUATION SO SHE HAS BEEN NPO. PATIENT IN STABLE CONDITION. WILL CONTINUE TO MONITOR PATIENT FOR ANY CHANGES.
--- NOTE | 2020-07-08 12:58 | NUR ---
[facility], re: Swallowing eval . Left her a voice message.
--- NOTE | 2020-07-08 13:20 | NUR ---
SS NOTES: AUDIT MGR received a message from APS worker, Aron Emery @ [phone]. Unknown reason for call. AUDIT MGR phoned back and left message for another call back. SS will remain available.
--- NOTE | 2020-07-08 13:24 | NUR ---
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 SARS-CoV-2 Ag (Rapid) Negative 07/03 Subjective Information: Pt seen sleeping in bed at time of RD rounding. Per EMR review, pt continues w/ poor PO intake, last BM was yesterday 07/07 and no new lab results as of 07/08. RN reported that pt is a/w swallow eval. Current Diet Order/Nutrition Support: Mechanical soft finely chopped Cardiac diet, Ensure Enlive TID, Ravindra BID, Prosource BID Pertinent Medications: Lovenox Pertinent Labs: No new labs Skin Integrity Comment: Liban scale: 14; per Feed Adviser note 07/04: 1. Left Distal Leonard: Cellulitis, present on admission. 2. Left Lateral Hip: Abrasion, present on admission. 3. Left Lateral Hip, posterior to site 2: Abrasion, present on admission. 4. Left Lower Extremity: Multiple, multiple scabs with dry, scaly skin, present on admission. 5. Right Lower Extremity: Multiple, multiple scabs with dry, scaly skin, present on admission. 6. Left Plantar Foot: Dry, greenish-black scaly skin, present on admission. 7. Right Plantar Foot: Dry flaky skin, present on admission. 8. Right Lateral Cheek near Zygomatic Bone: Dry abrasion, present on admission. 9. Upper back: Chronic wound, present on admission. 10. Left Dorsal Hand: Ecchymosis. No odor, no drainage. Current % PO Negligible (12% average of 9 meals in 3 days) Estimated Energy Expenditure (kcals/day) 1714-3040 kcal/day (25-30 kcal/kg IBW for wt gain promotion) Estimated Protein Required (g/day) 68 gm/day (1.2 gm/kg IBW for wt gain promotion) Estimated Fluid Required (l/day) 1.4-1.7 L/day (1 ml/kcal/day for maintenance) Problem/Etiology/Signs/Symptoms Malnutrition related to pathophysiological factors as evidenced by BMI: 16 kg/m2, 75% of IBW, and emaciated appearance. (*ongoing) Predicted suboptimal PO intake r/t physiological factors 2/2 cognitive limitations AEB negligible PO intake <25% of estimated needs x 5 days. (*new 10/12) Expected Outcomes/Goals - Monitor initiation of nutrition support or diet per OPTICAL INSTRUMENT ASSEMBLER w/ goal of pt meeting at least 50% of estimated nutritional needs, labs trending WNL, normal GI function, and skin integrity/wt maintenance Dietitian Recommendations * Recommend follow OPTICAL INSTRUMENT ASSEMBLER rec for PO diet or initiation of nutrition support if PO intake is not feasible. * Once diet is advanced, continue w/ ONS and modular Ravindra to promote wound healing and recommend adding appetite stimulant if diet is to be advanced per OPTICAL INSTRUMENT ASSEMBLER. Follow Up High Risk: F/U in 2-3days
--- NOTE | 2020-07-08 13:34 | NUR ---
Dietitian Recommendations * Recommend follow VARNISH REMOVER rec for PO diet or initiation of nutrition support if PO intake is not feasible. * Once diet is advanced, continue w/ ONS and modular Ravindra to promote wound healing and recommend adding appetite stimulant if diet is to be advanced per VARNISH REMOVER. Please see Nutrition F/U note for details. JACE LUIS
--- NOTE | 2020-07-08 14:30 | NUR ---
S.T. SWALLOW EVAL SWALLOW EVAL COMPLETED. PT PRESENTS W/ GENERALLY FUNCTIONAL OROPHARYNGEAL SWALLOW FOR PUREE AND THIN/THICK LIQUIDS W/ NO S/S OF ASPIRATION. REC: PUREE DIET. THIN LIQUIDS OK. NURSE CARRIE NOTIFIED.
--- NOTE | 2020-07-08 14:48 | NUR ---
RN ROUNDS: PATIENT IS AWAKE AND ALERT x2 LAYING DOWN IN BED. PATIENT IS TOLERATING OXYGEN ON ROOM AIR WITH NO SIGNS OF DISTRESS OR SHORTNESS OF BREATH NOTED. PATIENT WAS CLEANED AND REPOSITIONED. PATIENT TOLERATED IT WELL. IV SITE IS PATENT WITH NO SIGNS OF INFILTRATION NOTED. PATIENT IN STABLE CONDITION. WILL CONTINUE TO MONITOR PATIENT FOR ANY CHANGES.
[2020-07-08 16:31] VITALS: BP_SYST 96
--- NOTE | 2020-07-08 16:45 | NUR ---
RN ROUNDS: PATIENT IS ASLEEP LAYING DOWN IN BED. PATIENT IS TOLERATING OXYGEN ON ROOM AIR WITH NO SIGNS OF DISTRESS OR SHORTNESS OF BREATH NOTED. IV SITE IS PATENT WITH NO SIGNS OF INFILTRATION NOTED. PATIENT IN STABLE CONDITION. WILL CONTINUE TO MONITOR PATIENT FOR ANY CHANGES.
[2020-07-08] MEDS: cefTRIAXone 1 GM IVPB PREMIX 50 ML IV SCH (17:20)
--- NOTE | 2020-07-08 18:50 | NUR ---
CLOSING NOTES: PATIENT IS ASLEEP LAYING DOWN IN BED. PATIENT IS TOLERATING OXYGEN ON ROOM AIR WITH NO SIGNS OF DISTRESS OR SHORTNESS OF BREATH NOTED. IV SITE IS PATENT WITH NO SIGNS OF INFILTRATION NOTED. PATIENT IN STABLE CONDITION. SAFETY, FALL, AND ASPIRATION PRECAUTIONS REMAINED IN PLACE THROUGHOUT THE SHIFT. BED LOCKED IN LOWEST POSITION WITH CALL LIGHT IN REACH. WILL ENDORSE PATIENT CARE TO ONCOMING LOCOMOTIVE ENGINEER DIESEL NURSE.
--- NOTE | 2020-07-08 19:30 | NUR ---
Initial note: Received report from shukri RN. Patient is in bed, watching TV. No acute distress. Even, nonlabored breathing on room air. IV site is patent, intact, and saline locked. Bed is locked at lowest position. Side rails up. Bed alarm on. Call light is with patient. Safety and fall precautions in place. Will continue with plan of care.
[2020-07-08 20:00] VITALS: BP_SYST 111
--- NOTE | 2020-07-08 21:45 | NUR ---
Rounds: Patient is watching tv, in bed. No acute distress. Even, nonlabored respirations on room air. Call light is with patient. Safety and fall precautions in place. Will continue to monitor.
[2020-07-09] VITALS: BP_SYST 111
--- NOTE | 2020-07-09 00:15 | NUR ---
Rounds: Patient is watching tv, in bed. No s/s acute distress. Even, nonlabored breathing on room air. Call light is with patient. Safety and fall precautions in place. Will continue to monitor.
[2020-07-09] MEDS: DILTIAZEM HCL 30 MG TABLET PO SCH ×2 (00:47→05:41)
--- NOTE | 2020-07-09 02:30 | NUR ---
Rounds: Patient is sleeping in bed. No acute distress. Respirations are even, nonlabored on room air. Call light is with patient. Safety and fall precautions in place. Will continue to monitor.
--- NOTE | 2020-07-09 04:30 | NUR ---
Rounds: Patient is watching tv, in bed. No signs of acute distress. Breathing is even, nonlabored on room air. Call light is with patient. Safety and fall precautions in place. Will continue to monitor.
--- NOTE | 2020-07-09 06:34 | NUR ---
Closing note: Patient is in bed, watching TV. No acute distress. Even, nonlabored breathing on room air. IV site is patent, intact, and saline locked. All needs met. Bed is locked at lowest position. Side rails up. Bed alarm on. Call light is with patient. Safety and fall precautions in place. Will endorse care to dayshift RN.
--- NOTE | 2020-07-09 07:30 | NUR ---
OPENING NOTES: RECEIVED PATIENT FROM MARKETING SALES SUPERVISOR NURSE. PATIENT IS ASLEEP LAYING DOWN IN BED. PATIENT AWAKES WITH VERBAL STIMULI. PATIENT DENIES ANY PAIN AT THE MOMENT. PATIENT IS TOLERATING OXYGEN ON ROOM AIR WITH NO SIGNS OF DISTRESS OR SHORTNESS OF BREATH NOTED. IV SITE IS PATENT WITH NO SIGNS OF INFILTRATION NOTED. PATIENT IN STABLE CONDITION. SAFETY, FALL, AND ASPIRATION PRECAUTIONS ARE IN PLACE. BED LOCKED IN LOWEST POSITION WITH CALL LIGHT IN REACH. WILL CONTINUE TO MONITOR PATIENT FOR ANY CHANGES.
[2020-07-09 08:00] VITALS: BP_SYST 102
--- NOTE | 2020-07-09 08:57 | NUR ---
Corridor Redevelopment Manager Note Spoke with patient's nurse, Stefania ROTH. Patient is confused today and forgetful. Spoke with Laureen HERMAN with HCP. She is planning for patient to go to a SNF when discharged. Noted patient's confusion and nurse's note that patient is unable to walk. Laureen will determine if Attending will order PT eval. Returned the call of Aron Emery with APS [phone]. Left a voicemail message.
[2020-07-09] MEDS: ASPIRIN 81 MG TABLET(ECOTRIN) PO SCH (09:37)
[2020-07-09] MEDS: METOPROLOL SUCCINATE 25 MG TAB.SR.24H (TOPROL XL) PO SCH (09:39)
[2020-07-09] MEDS: EMOLLIENT COMBINATION NO.73 78 GM CREAM..G. TP SCH ×2 (09:40→20:10)
[2020-07-09] MEDS: ENOXAPARIN SODIUM 60 MG/0.6 ML SYRINGE SUBCUT SCH (09:41)
[2020-07-09] MEDS ORDERED: DILTIAZEM HCL 120 MG CAP.SR.24H PO ONE (11:00)
[2020-07-09 11:23] VITALS: BP_SYST 117
[2020-07-09] MEDS ORDERED: APIXABAN 2.5 MG TABLET PO ONE (12:00)
--- NOTE | 2020-07-09 12:00 | NUR ---
ELIQUIS: ELIQUIS NOT GIVEN. ALREADY GAVE PATIENT HER MORNING LOVENOX DOSE. WILL RESUME ELIQUIS SCHEDULED.
--- NOTE | 2020-07-09 12:10 | NUR ---
RN ROUNDS: PATIENT IS AWAKE AND ALERT x2 SITTING UP IN BED. PATIENT STATES SHE DOES NOT WANT TO EAT. INFORMED PATIENT THAT SHE SHOULD TRY TO EAT SOMETHING. PATIENT DENIES ANY PAIN AT THE MOMENT. IV SITE IS PATENT WITH NO SIGNS OF INFILTRATION NOTED. PATIENT IN STABLE CONDITION. WILL CONTINUE TO MONITOR PATIENT FOR ANY CHANGES.
--- NOTE | 2020-07-09 14:20 | NUR ---
RN ROUNDS: PATIENT IS ASLEEP LAYING DOWN IN BED. PATIENT AWAKES WITH VERBAL STIMULI. PATIENT REPOSITIONED AND TOLERATED IT WELL. GAVE PATIENT ICE CHIPS REQUESTED AND A COLD TOWEL. PATIENT DENIES ANY PAIN AT THE MOMENT. PATIENT IN STABLE CONDITION. WILL CONTINUE TO MONITOR PATIENT FOR ANY CHANGES.
[2020-07-09 15:51] VITALS: BP_SYST 112
--- NOTE | 2020-07-09 18:43 | NUR ---
CLOSING NOTES: PATIENT IS ASLEEP LAYING DOWN IN BED. PATIENT AWAKES WITH VERBAL STIMULI. PATIENT DENIES ANY PAIN AT THE MOMENT. PATIENT IS TOLERATING OXYGEN ON ROOM AIR WITH NO SIGNS OF DISTRESS OR SHORTNESS OF BREATH NOTED. IV SITE IS PATENT WITH NO SIGNS OF INFILTRATION NOTED. PATIENT IN STABLE CONDITION. SAFETY, FALL, AND ASPIRATION PRECAUTIONS REMAINED IN PLACE THROUGHOUT THE SHIFT. BED LOCKED IN LOWEST POSITION WITH CALL LIGHT IN REACH. WILL ENDORSE PATIENT CARE TO ONCOMING RESTAURANT GREETER NURSE.
[2020-07-09 20:00] VITALS: BP_SYST 128
[2020-07-09] MEDS: DILTIAZEM HCL 120 MG CAP.SR.24H PO SCH (20:09)
[2020-07-09] MEDS: APIXABAN 2.5 MG TABLET PO SCH (20:09)
--- NOTE | 2020-07-09 22:00 | NUR ---
Rounds: Patient is resting in bed. No acute distress. Respirations are even, nonlabored on room air. Call light is with patient. Safety and fall precautions in place. Will continue to monitor.
[2020-07-10] VITALS: BP_SYST 129
--- NOTE | 2020-07-10 00:20 | NUR ---
Rounds: Patient is in bed, resting. No acute distress. Breathing is even, nonlabored on room air. Call light is with patient. Safety and fall precautions in place. Will continue monitoring.
--- NOTE | 2020-07-10 02:30 | NUR ---
Rounds: Patient is watching TV in bed. No signs of acute distress. Even, nonlabored breathing on room air. Call light is with patient. Safety and fall precautions in place. Will continue monitoring.
--- NOTE | 2020-07-10 04:30 | NUR ---
Rounds: Patient is in bed, watching TV. No s/s of acute distress. Tolerating room air. Even, nonlabored breathing. Call light is with patient. Safety and fall precautions in place. Will continue monitoring.
--- NOTE | 2020-07-10 07:30 | NUR ---
OPENING NOTES: RECEIVED PATIENT FROM BUTTONHOLE FACER NURSE. PATIENT IS ASLEEP LAYING DOWN IN BED. PATIENT AWAKES WITH VERBAL STIMULI. PATIENT REPOSITIONED AND TOLERATED IT WELL. PATIENT GIVEN WATER. PATIENT DENIES ANY PAIN AT THE MOMENT. PATIENT IS TOLERATING OXYGEN ON ROOM AIR WITH NO SIGNS OF DISTRESS OR SHORTNESS OF BREATH NOTED. IV SITE IS PATENT WITH NO SIGNS OF INFILTRATION NOTED. PATIENT IN STABLE CONDITION. SAFETY, FALL, AND ASPIRATION PRECAUTIONS ARE IN PLACE. BED LOCKED IN LOWEST POSITION WITH CALL LIGHT IN REACH. WILL CONTINUE TO MONITOR PATIENT FOR ANY CHANGES.
[2020-07-10 08:00] VITALS: BP_SYST 118
[2020-07-10] MEDS: DILTIAZEM HCL 120 MG CAP.SR.24H PO SCH (08:13)
[2020-07-10] MEDS: METOPROLOL SUCCINATE 25 MG TAB.SR.24H (TOPROL XL) PO SCH (08:13)
[2020-07-10] MEDS: APIXABAN 2.5 MG TABLET PO SCH (08:15)
[2020-07-10] MEDS: EMOLLIENT COMBINATION NO.73 78 GM CREAM..G. TP SCH (08:16)
--- NOTE | 2020-07-10 10:29 | NUR ---
RN ROUNDS: PATIENT IS ASLEEP LAYING DOWN IN BED. PATIENT IS TOLERATING OXYGEN ON ROOM AIR WITH NO SIGNS OF DISTRESS OR SHORTNESS OF BREATH NOTED. PATIENT IN STABLE CONDITION. WILL CONTINUE TO MONITOR PATIENT FOR ANY CHANGES.
--- NOTE | 2020-07-10 12:15 | NUR ---
RN ROUNDS: PATIENT IS ASLEEP LAYING DOWN IN BED. PATIENT IS TOLERATING OXYGEN ON ROOM AIR WITH NO SIGNS OF DISTRESS OR SHORTNESS OF BREATH NOTED. IV SITE IS PATENT. PATIENT IN STABLE CONDITION. WILL CONTINUE TO MONITOR PATIENT FOR ANY CHANGES.
[2020-07-10 12:30] VITALS: BP_SYST 123
[2020-07-10 13:21] VITALS: BP_SYST 118
--- NOTE | 2020-07-10 14:27 | NUR ---
PT TRANSFERRED Report given to Rekha at [facility]. Transfer packet with Transfer Orders and Medication Reconciliation form given to EMT with report. Exit care provided. [facility] ID band removed, replaced with ID band with pt's name and . IV catheter removed, intact and dressing applied, no active bleeding. All belongings sent with patient. Patient left floor via gurney escorted by EMT in no distress.
--- NOTE | 2020-07-11 10:27 | NUR ---
APS Phoned patient's APS worker, Aron Emery [phone], twice but the voicemail was full. Addendum: 07/11/20 at 1029 by Maria G Frye LCSW Call was to update him that patient went to [facility] on 07/10/20.
== END 2020-07-10 14:27 | DRG 281 ==
LOC: SED 13:49 → STU 17:52
PROVIDERS: ADMIT Internal Medicine Hospice and Palliative Medicine; ATTEND Internal Medicine Hospice and Palliative Medicine
DX: I48.91 Unspecified atrial fibrillation (principal); I21.A1 Myocardial infarction type 2; G81.94 Hemiplegia, unspecified affecting left nondominant side; I10 Essential (primary) hypertension; Z20.828 Contact with and (suspected) exposure to other viral communicable diseases; Z88.5 Allergy status to narcotic agent; Z82.49 Family history of ischemic heart disease and other diseases of the circulatory system; Z91.041 Radiographic dye allergy status
CPT/HCPCS: 36415; 36600; 70450-TC; 71045; 80053; 81000-TC; 82803-TC; 83605; 84443-TC; 84484; 85025; 85610-TC; 85730-TC; 87040-TC; 87081; 87086; 92610-GN; 93005; 93306; 96361; 96365; 96368; 96375; 99291; 99292; A9577; G0378; J0696; J1650; J3490; J7030; J7040